=== PATIENT | female | born 2000 | race Two or more races ===

== ENCOUNTER 2025-01-31 22:36 | Emergency (ER) | payer OTHER ==
[~2025-01-31] VITALS: Ht 167.6 cm; Wt 79.4 kg
[2025-01-31] MEDS ORDERED: LEVO-T175 MCG (22:50)
[2025-01-31] MEDS ORDERED: APRI 28 DAY TA1 EACH (22:50)
[2025-02-01 01:00] LABS: URINE APPEARANCE Turbid; URINE BILIRRUBIN Negative (NEGATIVE); URINE BLOOD Large; URINE COLOR Yellow; URINE GLUCOSE Negative (NEGATIVE); URINE KETONE Trace (NEGATIVE); URINE LEUKOCYTE Moderate; URINE NITRATE Negative; URINE UROBILINOGEN 0.2 E.U./dl
[2025-02-01 01:04] LABS: URINE BACTERIA 2577.5 uL (0.0-1933); URINE CAST 1.61 uL (0.0-1.40); URINE EPITHELIAL CELLS 13.9 uL (0.0-38.8); URINE RBC 623.7 uL (0.0-20.8); URINE WBC 2434.8 uL (0.0-23.2)
[2025-02-01] MEDS ORDERED: CIPROFLOXACIN IN 5 % DEXTROSE 400 MG/200 ML PIGGYBAG IV STA (01:29)
[2025-02-01 01:54] LABS: URINE PROTEIN 100 (NEGATIVE)
== END 2025-02-01 03:27 | disposition home or self-care (01) ==
LOC: ER 22:36
DX: N39.0 Urinary tract infection, site not specified (principal)